=== PATIENT | female | born 1990 | race Caucasian/White ===

== ENCOUNTER 2021-08-04 20:25 | Emergency (ER) | payer MEDICAID ==
[~2021-08-04] VITALS: Ht 175.3 cm; Wt 90.9 kg
[2021-08-04 20:33] VITALS: TEMP 97.2
[2021-08-04 20:46] LABS: COLLECTION METHOD CLEAN CATCH
[2021-08-04 20:55] LABS: MUCOUS Present (NOT PRESENT); PH 5 (5-8); URINE APPEARANCE Hazy (CLEAR/HAZY); URINE BACTERIA None Seen /hpf (NONE SEEN); URINE BILIRUBIN Negative (NEGATIVE); URINE BLOOD 2+ (NEGATIVE); URINE COLOR Amber (YELLOW); URINE GLUCOSE Negative (NEGATIVE); URINE KETONE Negative (NEGATIVE); URINE LEUKOCYTE ESTERASE Negative (NEGATIVE); URINE NITRATE Positive (NEGATIVE); URINE PROTEIN(semi-quant) 2+ (NEGATIVE); URINE RBC >50 /hpf (0-2); URINE UROBILINOGEN >=4.0 (NEGATIVE)
[2021-08-04] MEDS ORDERED: CEFTIN 250250 MG/TAB PO (21:24)
[2021-08-04 21:33] VITALS: BP 141/91; PULSE 87
[2021-08-07] MEDS ORDERED: BACTRIM DS 8001 TAB PO (14:23)
== END 2021-08-04 21:33 | disposition home or self-care (01) ==
LOC: COL.ER 20:25
PROVIDERS: Nurse Practitioner
DX: N39.0 Urinary tract infection, site not specified (principal); Z88.0 Allergy status to penicillin; Z88.1 Allergy status to other antibiotic agents